=== PATIENT | male | born 1965 | race Caucasian/White ===

== ENCOUNTER 2020-06-07 17:33 | Inpatient (IN) | payer MEDICAID, OTHER ==
[~2020-06-07] VITALS: Ht 172.7 cm; Wt 87.3 kg
[~2020-06-07 17:33] MED LIST: QUET200T PO
[2020-06-07 19:14] LABS: BASOPHILS % (AUTO) 0.1 % (0.0-2.0); EOSINOPHILS % (AUTO) 0.1 % (1.0-6.0); HEMATOCRIT 43.5 % (41-53); HEMOGLOBIN 14.6 g/dL (13.5-17.5); LYMPHOCYTES # (AUTO) 0.9 K/uL (1.0-4.8); LYMPHOCYTES % (AUTO) 4.4 % (22.0-44.0); MEAN CORPUSCULAR HEMOGLOBIN 29.1 pg (26.0-34.0); MEAN CORPUSCULAR HGB CONC 33.4 G/dL (31.0-37.0); MEAN CORPUSCULAR VOLUME 87 fL (80-100); MONOCYTES # (AUTO) 1.4 K/uL (0.1-1.0); MONOCYTES % (AUTO) 6.8 % (2.0-9.0); NEUTROPHILS # (AUTO) 18.8 K/uL (1.8-7.7); PLATELET COUNT (AUTO) 221 K/uL (150-450); RED CELL DISTRIBUTION WIDTH 12.9 % (11.5-14.5)
[2020-06-07 19:19] LABS: NEUTROPHILS % (AUTO) 88.6 % (40.0-70.0)
[2020-06-07 19:26] LABS: ANION GAP 8 mmol/L (8-16); CALCIUM, TOTAL 8.6 mg/dL (8.8-10.5); CARBON DIOXIDE 29 mmol/L (22-29); CHLORIDE 101 mmol/L (98-107); GLOMERULAR FILTR. RATE CALC > 60 mL/min (>60); GLUCOSE,RANDOM 170 mg/dL (70-110); SODIUM SERUM 138 mmol/L (136-145); UREA NITROGEN, BLOOD 19 mg/dL (7-18)
[2020-06-07 19:34] LABS: ALANINE AMINOTRANSFERASE 69 U/L (12-78); ALBUMIN 3.6 g/dL (3.4-5.0); ALKALINE PHOSPHATASE 80 U/L (46-116); ASPARTATE AMINOTRANSFERASE 55 U/L (15-37); BILIRUBIN,TOTAL 0.3 mg/dL (0.1-1.0)
[2020-06-07 20:12] LABS: ACETAMINOPHEN < 2 mcg/mL (10-30)
[2020-06-07 20:34] LABS: COVID AG,FIA SOURCE NASOPHARYNGEAL
[2020-06-07 20:38] LABS: SALICYLATE 0.2 mg/dL (2.8-20.0)
[2020-06-07] MEDS ORDERED: HALOPERIDOL 5 MG TABLET PO PRN (21:15)
[2020-06-07] MEDS ORDERED: ZOLPIDEM TARTRATE 10 MG TABLET PO PRN (21:15)
[2020-06-07] MEDS ORDERED: LORazepam 2 MG TABLET PO PRN (21:15)
[2020-06-07 22:37] LABS: AMPHET/METH SCREEN,URINE NEGATIVE (NEGATIVE); BARBITURATE SCREEN, URINE NEGATIVE (NEGATIVE); BENZODIAZEPINES SCREEN,URINE NEGATIVE (NEGATIVE); CANNABINOID SCREEN,URINE NEGATIVE (NEGATIVE); COCAINE SCREEN,URINE NEGATIVE (NEGATIVE); METHADONE SCREEN, URINE NEGATIVE (NEGATIVE); OPIATE SCREEN,URINE POSITIVE (NEGATIVE)
[2020-06-07 22:42] LABS: PHENCYCLIDINE SCREEN,URINE NEGATIVE (NEGATIVE)
[2020-06-08 04:00] VITALS: BP 148/92
[2020-06-08] MEDS ORDERED: ONDANSETRON HCL 4 MG TABLET PO PRN (06:45)
[2020-06-08] MEDS ORDERED: ALBUTEROL SULFATE HFA 90 MCG/PUFF 8 GM INHALER IH PRN (06:45)
[2020-06-08] MEDS ORDERED: IBUPROFEN 600 MG TABLET PO PRN (06:45)
[2020-06-08] MEDS ORDERED: LOPERAMIDE HCL 2 MG CAPSULE PO PRN (06:45)
[2020-06-08] MEDS ORDERED: DOCUSATE SODIUM 100 MG CAPSULE PO PRN (06:45)
[2020-06-08] MEDS ORDERED: ACETAMINOPHEN 325 MG TABLET PO PRN (06:45)
[2020-06-08] MEDS ORDERED: OMEPRAZOLE 20 MG CAPSULE PO PRN (06:45)
[2020-06-08] MEDS ORDERED: MAGNESIUM HYDROXIDE SUSPENSION 30 ML UDCUP PO PRN (06:45)
[2020-06-08] MEDS ORDERED: BENZOCAINE/MENTHOL LOZENGE PO PRN (06:45)
[2020-06-08] MEDS ORDERED: PETROLATUM,WHITE 28 GM JELLY TP PRN (06:45)
[2020-06-08] MEDS ORDERED: MAG HYDROX/AL HYDROX/SIMETH ES 30 ML SUSPENSION UDCUP PO PRN (06:45)
[2020-06-08] MEDS ORDERED: CloNIDine HCL 0.1 MG TABLET PO PRN (06:45)
[2020-06-08] MEDS ORDERED: BACITRACIN 28 GM OINTMENT TP PRN (06:45)
[2020-06-08 07:28] LABS: CHOL/HDL RATIO 2.7 (4.2-7.3)
[2020-06-08 13:33] VITALS: BP 130/83
[2020-06-08 16:30] VITALS: BP 139/63
[2020-06-08 17:16] VITALS: BP 139/63
[2020-06-09 06:53] LABS: BASOPHILS % (AUTO) 0.5 % (0.0-2.0); EOSINOPHILS % (AUTO) 1.9 % (1.0-6.0); HEMATOCRIT 41.9 % (41-53); HEMOGLOBIN 14.1 g/dL (13.5-17.5); LYMPHOCYTES # (AUTO) 1.3 K/uL (1.0-4.8); MEAN CORPUSCULAR HEMOGLOBIN 29.3 pg (26.0-34.0); MEAN CORPUSCULAR HGB CONC 33.6 G/dL (31.0-37.0); MEAN CORPUSCULAR VOLUME 87 fL (80-100); MONOCYTES # (AUTO) 0.7 K/uL (0.1-1.0); MONOCYTES % (AUTO) 10.8 % (2.0-9.0); NEUTROPHILS % (AUTO) 65.8 % (40.0-70.0); PLATELET COUNT (AUTO) 195 K/uL (150-450); RED CELL DISTRIBUTION WIDTH 13.2 % (11.5-14.5)
[2020-06-09 07:47] LABS: ALANINE AMINOTRANSFERASE 42 U/L (12-78); ALBUMIN 3.3 g/dL (3.4-5.0); ALKALINE PHOSPHATASE 66 U/L (46-116); ANION GAP 7 mmol/L (8-16); ASPARTATE AMINOTRANSFERASE 16 U/L (15-37); BILIRUBIN,TOTAL 0.3 mg/dL (0.1-1.0); CALCIUM, TOTAL 8.6 mg/dL (8.8-10.5); CARBON DIOXIDE 28 mmol/L (22-29); CHLORIDE 106 mmol/L (98-107); CREATININE 0.95 mg/dL (0.60-1.30); GLOMERULAR FILTR. RATE CALC > 60 mL/min (>60); GLUCOSE,RANDOM 100 mg/dL (70-110); POTASSIUM 4.2 mmol/L (3.5-5.1); SODIUM SERUM 141 mmol/L (136-145); THYROID STIMULATING HORMONE 4.95 uIU/mL (0.36-3.74); TOTAL PROTEIN, SERUM 6.3 g/dL (6.4-8.2); UREA NITROGEN, BLOOD 18 mg/dL (7-18)
[2020-06-09 14:17] VITALS: BP 124/81
[2020-06-09 16:00] VITALS: BP 127/84
[2020-06-09] MEDS: RisperiDONE 0.5 MG TABLET PO SCH (17:52)
[2020-06-10] MEDS: RisperiDONE 0.5 MG TABLET PO SCH ×2 (08:22→16:35)
[2020-06-10 08:45] VITALS: BP 128/83
[2020-06-10 16:00] VITALS: BP 126/89
[2020-06-11 01:02] VITALS: BP 118/82
[2020-06-11] MEDS: RisperiDONE 0.5 MG TABLET PO SCH ×2 (08:28→17:04)
[2020-06-11 08:30] VITALS: BP 121/88
[2020-06-11 16:45] VITALS: BP 124/82
[2020-06-12] MEDS: RisperiDONE 0.5 MG TABLET PO SCH ×2 (08:44→16:58)
[2020-06-12 10:22] VITALS: BP 132/76
[2020-06-12 16:00] VITALS: BP 136/89
[2020-06-13] MEDS: RisperiDONE 0.5 MG TABLET PO SCH (08:35)
[2020-06-13 08:44] VITALS: BP 125/87
[2020-06-13 14:06] LABS: COVID AG,FIA SOURCE NASOPHARYNGEAL
[2020-06-13 16:03] VITALS: BP 129/76
[2020-06-13] MEDS: RisperiDONE 1 MG TABLET PO SCH (16:04)
[2020-06-14 03:38] VITALS: BP 134/69
[2020-06-14 08:18] VITALS: BP 122/71
[2020-06-14] MEDS: RisperiDONE 1 MG TABLET PO SCH ×2 (08:23→16:15)
[2020-06-14] MEDS: CITALOPRAM HYDROBROMIDE 20 MG TABLET PO SCH (08:23)
[2020-06-14 16:11] VITALS: BP 124/85
[2020-06-15] MEDS: CITALOPRAM HYDROBROMIDE 20 MG TABLET PO SCH (08:36)
[2020-06-15] MEDS: RisperiDONE 1 MG TABLET PO SCH ×2 (08:36→16:31)
[2020-06-15 09:50] VITALS: BP 121/81
[2020-06-15 16:00] VITALS: BP 135/93
[2020-06-16] MEDS: RisperiDONE 1 MG TABLET PO SCH (07:58)
[2020-06-16] MEDS: CITALOPRAM HYDROBROMIDE 20 MG TABLET PO SCH (07:59)
[2020-06-16 08:00] VITALS: BP 129/85
[2020-06-16] MEDS ORDERED: CITA-144 PO (12:13)
[2020-06-16] MEDS ORDERED: RISP1TAB48 PO (12:13)
== END 2020-06-16 14:20 | disposition home or self-care (01) | DRG 750 ==
LOC: EMS 17:33 → 3EI 21:08
PROVIDERS: ADMIT Psychiatry & Neurology Psychiatry; ATTEND Psychiatry & Neurology Psychiatry
DX: F20.0 Paranoid schizophrenia (principal); T50.902A Poisoning by unspecified drugs, medicaments and biological substances, intentional self-harm, initial encounter; Y92.89 Other specified places as the place of occurrence of the external cause; F11.10 Opioid abuse, uncomplicated; D72.829 Elevated white blood cell count, unspecified; K59.00 Constipation, unspecified; R73.9 Hyperglycemia, unspecified; F41.9 Anxiety disorder, unspecified; G47.00 Insomnia, unspecified; Z20.822 Contact with and (suspected) exposure to COVID-19; I10 Essential (primary) hypertension
CPT/HCPCS: 83036; 84443; 87426; 93005; 99285; G0480; G0481; 36415-L1; 36415-TC; 71045-TC; 80061-TC